=== PATIENT | female | born 1985 | race Caucasian/White ===

== ENCOUNTER 2016-05-27 17:45 | Emergency (ER) | payer OTHER ==
[~2016-05-27] VITALS: Ht 165.1 cm; Wt 81.1 kg
[~2016-05-27 17:45] MED LIST: ADDERALL10 MG PO; BENADRYL ITCH28.3 GM TP; CELEXA20 MG PO; CLEOCIN300 MG PO; EFFEXOR XR37.5 MG PO; MEDROL DOSEPAK4 MG PO; PERCOCET 5/31 TABLET PO; WELLBUTRIN100 MG PO
[2016-05-27] MEDS ORDERED: VOLTAREN75 MG PO (19:33)
[2016-05-27] MEDS ORDERED: DILAUDID2 MG PO (19:33)
[2016-05-27 20:31] VITALS: BP 119/76
== END 2016-05-27 20:32 | disposition home or self-care (01) ==
LOC: EME 17:45
DX: M25.462 Effusion, left knee (principal); S83.91XA Sprain of unspecified site of right knee, initial encounter; S83.92XA Sprain of unspecified site of left knee, initial encounter; V00.318A Other snowboard accident, initial encounter; Y93.23 Activity, snow (alpine) (downhill) skiing, snowboarding, sledding, tobogganing and snow tubing
CPT/HCPCS: 73564; 99281; 99284

== ENCOUNTER 2017-02-12 12:02 | Emergency (ER) | payer OTHER ==
[~2017-02-12] VITALS: Ht 165.1 cm; Wt 84.7 kg
[~2017-02-12 12:02] MED LIST changes: +DILAUDID2 MG PO; +VOLTAREN75 MG PO
[2017-02-12 14:30] LABS: ADD MIUA? NO; BILIRUBIN NEGATIVE; BLOOD NEGATIVE; COLOR STRAW ((YELLOW)); GLUCOSE (STRIP) NEGATIVE; KETONES NEGATIVE; LEUKOCYTES NEGATIVE; NITRITE NEGATIVE; PROTEIN (STRIP) NEGATIVE; SPECIFIC GRAVITY 1.008 (1.000-1.030); UROBILINOGEN 0.2 MG/DL (0.2-1.0)
[2017-02-12 14:31] LABS: INTERNAL CONTROL VALID? YES
[2017-02-12] MEDS ORDERED: PERCOCET 5/31 TABLET PO (14:38)
[2017-02-12] MEDS ORDERED: MEDROL DOSEPAK4 MG PO (14:38)
[2017-02-12] MEDS ORDERED: FLEXERIL10 MG PO (14:38)
[2017-02-12] MEDS ORDERED: LIDODERM 5% P1 PATCH TD (14:40)
[2017-02-12 15:08] VITALS: BP 113/84
== END 2017-02-12 15:09 | disposition home or self-care (01) ==
LOC: EME 12:02
PROVIDERS: Nurse Practitioner Family
DX: M54.41 Lumbago with sciatica, right side (principal); Z97.5 Presence of (intrauterine) contraceptive device; Z88.0 Allergy status to penicillin; Z88.2 Allergy status to sulfonamides
CPT/HCPCS: 81003; 84703; 99281; 99284; J1885